=== PATIENT | male | born 1940 | race Caucasian/White ===

== ENCOUNTER 2016-06-13 20:16 | Emergency (ER) | payer MEDICARE, OTHER ==
[~2016-06-13] VITALS: Ht 190.5 cm; Wt 109.1 kg
[~2016-06-13 20:16] MED LIST: ASPI81TA40 PO; CLAR10T PO; ENAL20TA79 PO; HYDR25TA4 PO; INSU100V3 IJ; INSU100V4 SQ; NIAC500T8 PO; SIMV80TA PO
[2016-06-13 20:22] VITALS: BP 149/73; PULSE 64; RESP 16; O2SAT 98
--- NOTE | 2016-06-13 21:06 | ED.REPORT ---
HPI-Extremity Problem Upper Date of Service Jun 13, 2016 ED Provider: Dr. Amandeep Kirby D.O. A 76 year old male with a history of incarcerated inguinal hernia s/p repair presents to the ED with a left forearm laceration onset just prior to arrival. The patient experienced a mechanical ground level fall and hit his forearm against the edge of a bench. He is not up to date on his tetanus shot. The patient denies hitting his head or other injury/trauma from the fall. Nursing Notes Stated Complaint: LACERATION ON LT FOREARM Chief Complaint: Extremity Trauma Nursing Notes Reviewed: Yes Allergies: Uncoded Allergies: No Known Allergies (Allergy, Unknown, 10/07/04) Scheduled Aspirin-Expunged Drug, Do Not Renew! (Aspirin-Expunged Drug, Do Not Renew!) 81 Mg Tab.chew 81 MG PO MWF Enalapril-Expunged Drug, Do Not Renew! (Enalapril-Expunged Drug, Do Not Renew!) 20 Mg Tablet 40 MG PO DAILY Hydrochlorothiazide-Expunged, Do Not Renew! (Hydrochlorothiazide-Expunged, Do Not Renew!) 25 Mg Tablet 25 MG PO AM Insulin Detemir-Expunged Drug, Do Not Renew! (Levemir-Expunged Drug, Do Not Renew!) 100 U/Ml Vial 36 U SQ HS Insulin Regular-Expunged Drug, Do Not Renew! (Novolin R-Expunged Drug, Do Not Renew!) 100 U/Ml Vial U IJ TIDAC sliding scale Loratadine-Expunged Drug, Do Not Renew! (Loratadine-Expunged Drug, Do Not Renew! ) 10 Mg Tablet 10 MG PO DAILY prn Niacin-Expunged Drug, Do Not Renew! (Niacin-Expunged Drug, Do Not Renew!) 500 Mg Tablet.sa 3,000 MG PO DAILY Simvastatin-Expunged Drug, Choose New Med! (Simvastatin-Expunged Drug, Choose New Med!) 80 Mg Tablet 80 MG PO AM General Time Seen by MD: 21:06 Chief Complaint Forearm injury left Hx Obtained From: Patient Arrived By: Walk-in Onset Occurred: Just prior to arrival Symptom Duration: Since onset Location: : Forearm left Quality: Painful Severity: Current: Moderate Severity: Maximum: Moderate Associated with: Denies: Fever Pertinent Negative: Relieved by nothing Immunizations: Tetanus not up to date Recent Healthcare: No recent doctor visit Past Medical History Past Medical History Incarcerated umbilical hernia Past Surgical History Repair incarcerated umbilical hernia. Excision of posterior neck mass 5 x 4 x 1 cm. Smoking History Unknown if Ever Smoker Social History Other Social History: Ambulatory Status Independent Review of Systems Review of Systems Note: + Left forearm laceration Constitutional: Denies: Fever Musculoskeletal: Reports: Extremity pain (Left forearm) Complete sys rev & neg: except as marked. Respiratory: Denies: Non-productive cough, Shortness of breath GI: Denies: Diarrhea, Vomiting Physical Exam Initial Vital Signs Vital Signs (First) Date Time Temp Pulse Resp B/P Pulse Ox O2 Delivery O2 Flow Rate FiO2 06/13/16 20:22 36.3 64 16 149/73 98 Room Air Initial VS: Reviewed Head / Eyes: Atraumatic, Normocephalic ENT: Conjunctiva normal, No scleral icterus Neck: Supple, Full range of motion Respiratory: No respiratory distress Skin: Warm, Dry Neurologic: Alert, Oriented, Nonfocal Psychiatric: Mood/affect normal, Behavior normal, Normal thought content General/Constitutional: Awake, Alert, No acute distress Upper Extremity / MS: Neurologic intact, Vascular intact Trauma / Burn / Environmental: Positive: Laceration (2cm, jagged, left forearm) Procedures Laceration Management Time: 21:38 Procedure Performed by: ED physician Consent / Setup / Site Prep: Consent from patient, Time-out performed, Hand hygiene observed, Stand sterile technique Location of Wound: Left forearm Wound Length: 2 cm Local Anesthesia: Lidocaine w epi 1% Wound Preparation: Hibiclens - Chlorhexidine Irrigation: Copious Repair Skin: ___ O (4), Nylon # Sutures - Skin: 4 Suture Technique: Simple (3), Mattress (1) Post-Procedure / Complications: Antibiotic oint applied, Dressing applied, No complications, Condition improved, Tolerated procedure well, Patient stable Re-Eval/Medical Decision Med Decision/Clinical Course No point bony tenderness. X-rays not indicated. Wounds were cleaned and closed. Tetanus updated. We will have 48 hour wound check. No signs of neurovascular or tendon injury. Re-Evaluation/Progress : Time of Eval: 21:38 Patient Status: Condition improved Re-Evaluation/Progress Note: Laceration management performed. Discussed with patient diagnosis and plan for discharge. Follow-up and return to the ER instructions given. Patient agrees with plan for care and all questions were addressed. Counseled Regarding: Diagnosis, Need for follow-up, When/why to return to ED Discharge & Departure Impression: Primary Impression: Laceration Disposition: Home Discharge Condition All VS Reviewed: Yes Condition: Improved Patient Instructions: Laceration (ED), Suture Care (ED) Additional Instructions: Keep the laceration clean, dry, and covered with antibiotic ointment. Get the wound checked in 48 hours. You may go to Urgent Care, your primary care provider, or return to the ER for this. The stitches will need to be removed in ten days. Call your primary care provider tomorrow for a follow-up appointment. Keep an eye out for signs of infection and return to the ER if you experience worsening pain, redness, swelling, or wound discharge. Referrals: Jaziel Montana MD (PCP) Scribe Attestation Portions of this note were transcribed by Jess Ross. I, Dr. Kirby, personally performed the history, physical exam, and medical decision-making; I reviewed and confirmed the accuracy of the information in the transcribed note. Signed by: Shi Yan, 06/13/2016, 22:50 copies to: Jaziel Montana MD, Todd P DO Jun 13, 2016 21:06 JESS ROSS Jun 13, 2016 21:28
[2016-06-13] MEDS ORDERED: TdaP Vaccine 0.5 mL Inj IM ONE (21:20)
[2016-06-13] MEDS ORDERED: Lidocaine 1%-Epi 1:100,000 50 mL Inj SUBQ ONE (21:20)
[2016-06-13] MEDS ORDERED: Lidocaine 1%-Epi 1:100,000 20 mL Inj ONE (21:24)
== END 2016-06-13 22:20 | disposition home or self-care (01) ==
LOC: SED 20:16
DX: S51.812A Laceration without foreign body of left forearm, initial encounter (principal); W01.190A Fall on same level from slipping, tripping and stumbling with subsequent striking against furniture, initial encounter; Y93.89 Activity, other specified; Y92.015 Private garage of single-family (private) house as the place of occurrence of the external cause; Y99.8 Other external cause status; Z23 Encounter for immunization

== ENCOUNTER 2016-06-25 15:38 | Emergency (ER) | payer MEDICARE, OTHER | END 2016-06-25 16:19 | disposition left against medical advice (07) | LOC: SED 15:38 | DX: Z48.02 Encounter for removal of sutures (principal); Z53.21 Procedure and treatment not carried out due to patient leaving prior to being seen by health care provider ==